=== PATIENT | female | born 1975 | race African-American/Black ===

== ENCOUNTER 2024-09-17 01:18 | Emergency (ER) | payer OTHER ==
[~2024-09-17] VITALS: Ht 170.2 cm; Wt 68.0 kg
[2024-09-17 01:23] VITALS: O2SAT 99
[2024-09-17] MEDS: TRAMADOL 50MG TABLET PO ONE (06:13)
[2024-09-17] MEDS: IBUPROFEN 600MG TABLET PO ONE (06:13)
[2024-09-17] MEDS ORDERED: IBUP-2029 MT (06:51)
[2024-09-17] MEDS ORDERED: TRAM50TA3 MT (06:51)
[2024-09-17 07:59] VITALS: BP 102/58; PULSE 66; RESP 18; TEMP 37.05852; O2SAT 99
== END 2024-09-17 08:10 | disposition home or self-care (01) ==
LOC: ER 01:18
DX: S30.0XXA Contusion of lower back and pelvis, initial encounter (principal); F41.9 Anxiety disorder, unspecified; F12.90 Cannabis use, unspecified, uncomplicated; W01.0XXA Fall on same level from slipping, tripping and stumbling without subsequent striking against object, initial encounter; Y93.89 Activity, other specified; Y92.89 Other specified places as the place of occurrence of the external cause; Y99.8 Other external cause status
CPT/HCPCS: 99283; Z7610

== ENCOUNTER 2025-03-16 19:40 | Emergency (ER) | payer OTHER ==
[~2025-03-16] VITALS: Ht 157.5 cm; Wt 75.0 kg
[~2025-03-16 19:40] MED LIST: IBUP-2029 MT; TRAM50TA3 MT
[2025-03-16 19:49] VITALS: TEMP 37.1; O2SAT 100
[2025-03-16 21:18] LABS: DIFFERENTIAL COMMENT 1; HEMOGLOBIN. 8.1 g/dL (12.0-16.0); MEAN CORPUSCULAR HEMOGLOBIN 18.4 pg (28.0-32.0); MEAN CORPUSCULAR HGB CONC 30.2 g/dL (31.0-37.0); MEAN CORPUSCULAR VOLUME 60.8 fL (81.0-99.0); MEAN PLATELET VOLUME 8.5 fl (7.4-10.4); PLATELET 223 x1000/uL (130-400); RED BLOOD CELL COUNT 4.44 mill/uL (4.2-5.4); RED CELL DISTRIBUTION WIDTH 24.6 % (11.6-14.6); WHITE BLOOD COUNT 7.3 x1000/uL (4.5-11.0)
[2025-03-16 21:25] LABS: CHLORIDE 110 mEq/L (98-107); POTASSIUM 3.7 mEq/L (3.5-5.1); SODIUM 141 mEq/L (136-145)
[2025-03-16 21:26] LABS: CARBON DIOXIDE 22 mEq/L (21-32)
[2025-03-16 21:27] LABS: CALCIUM 9.4 mg/dL (8.7-10.4)
[2025-03-16 21:31] LABS: CREATININE 0.8 mg/dL (0.6-1.0); GLUCOSE 96 mg/dL (70-105); MICROCYTOSIS 3+; PLATELET ESTIMATE NORMAL
[2025-03-16 21:32] LABS: ANISOCYTOSIS 3+; HYPOCHROMASIA 3+; UREA NITROGEN BLOOD 10 mg/dL (9-23)
[2025-03-16 21:33] LABS: TROPONIN I HIGH SENSITIVITY 9 ng/L (3.0-34)
[2025-03-16] MEDS: KETOROLAC 15MG/ML VIAL IM ONE (21:35)
[2025-03-16 21:46] LABS: HCG SCREEN NEGATIVE
[2025-03-16] MEDS: LORAZEPAM 0.5MG TABLET PO ONE (23:07)
[2025-03-17 00:03] LABS: ALANINE AMINOTRANSFERASE 14 IU/L (10-49); ASPARTATE AMINOTRANSFERASE 19 IU/L (<34); BILIRUBIN DIRECT 0.2 mg/dL (<=3.0); BILIRUBIN TOTAL 0.6 mg/dL (0.1-1.0)
[2025-03-17 00:04] LABS: PROTEIN TOTAL 6.9 g/dL (6.0-8.3)
[2025-03-17] MEDS ORDERED: NAPR-1176 MT (00:09)
[2025-03-17 00:28] VITALS: BP 119/52; PULSE 71; RESP 16; O2SAT 100
== END 2025-03-17 00:29 | disposition home or self-care (01) ==
LOC: ER 19:40
DX: D25.9 Leiomyoma of uterus, unspecified (principal); F12.10 Cannabis abuse, uncomplicated; F41.9 Anxiety disorder, unspecified
CPT/HCPCS: 99285; 74176; 71045; 80076; 80048; 84703; 83690; 85025; 84484; 36415; 93005; 96372; J1885